=== PATIENT | female | born 1955 | race African-American/Black ===

== ENCOUNTER 2018-03-06 12:22 | Emergency (ER) | payer OTHER ==
[~2018-03-06] VITALS: Ht 167.6 cm; Wt 83.5 kg
[~2018-03-06 12:22] MED LIST: CARI350T27 PO; GABA-534 PO; IBUP-1955 PO; INSU100V7 SQ; LOSA50TA21 PO; METF-440 PO; SIMV20TA6 PO
--- NOTE | 2018-03-06 12:25 | NUR ---
PRESENTS TO ER C/O CHRONIC LOW BACK PAIN. A/OX 4. BREATHING EVEN AND UNLABORED. NO SOB, NAD, NO TRAUMA. VITALS STABLE. SAFETY AND COMFORT MEASURES IN PLACE. AWAITING MD ORDERS.
--- NOTE | 2018-03-06 13:37 | NUR ---
[employer]HIC[employer]UR[employer] AGENT AT BEDSIDE.
--- NOTE | 2018-03-06 14:25 | NUR ---
Patient discharged to home in stable condition. Written and verbal after care instructions given. Patient verbalizes understanding of instruction.
[2018-03-06 14:39] VITALS: BP 180/67
== END 2018-03-06 14:25 | disposition home or self-care (01) ==
LOC: ER 12:24
DX: M54.41 Lumbago with sciatica, right side (principal); G89.29 Other chronic pain; E11.40 Type 2 diabetes mellitus with diabetic neuropathy, unspecified; E78.00 Pure hypercholesterolemia, unspecified; Z60.2 Problems related to living alone; F17.210 Nicotine dependence, cigarettes, uncomplicated; Z88.5 Allergy status to narcotic agent; Z88.0 Allergy status to penicillin; Z79.4 Long term (current) use of insulin
CPT/HCPCS: 72100-TC; A4606; Z7610